=== PATIENT | male | born 1945 | race Hispanic/Latino ===

== ENCOUNTER 2018-11-04 13:28 | Emergency (ER) | payer OTHER ==
[~2018-11-04] VITALS: Ht 162.6 cm; Wt 67.1 kg
--- OUTSIDE RECORDS SUMMARY | 2018-11-04 13:31 | XMS REPORT ---
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 Allergies, Adverse Reactions, Alerts Allergy Name Allergy Type Status Severity Reaction(s) Onset Date Inactive Date Treating Clinician Comments diphenhydramine DA Active SV 2018-10-01 00:00:00 diphenhydramine DA Active SV 2017-10-11 00:00:00 Medications This patient has no known medications.
[2018-11-04] MEDS ORDERED: SODIUM CHLORIDE 0.9% 1000ML 1,000 ML IV STA (13:39)
[2018-11-04] MEDS ORDERED: MORPHINE SULFATE 2 MG/ML SYR IV STA (13:39)
[2018-11-04] MEDS ORDERED: ONDANSETRON HCL INJ 2 MG/ML VIAL IV ONE (13:45)
[2018-11-04] MEDS ORDERED: MORPHINE SULFATE INJ 4 MG/ML INJ IV ONE (13:45)
[2018-11-04] MEDS ORDERED: DIATRIZOATE MEGL/DIATRIZOA SOD 30 ML BTL PO ONE (13:46)
[2018-11-04] MEDS ORDERED: PANTOPRAZOLE 40 MG 10ML VIAL IV ONE (14:30)
[2018-11-04 15:16] LABS: BASOPHILS % 0.4 % (0.0-1.0); EOSINOPHILS # (AUTO) 0.3 (0.0-0.4); EOSINOPHILS % 4.5 % (0.0-6.0); HEMATOCRIT 46.4 % (38.2-49.6); HEMOGLOBIN 15.8 g/dL (14.0-18.0); LYMPHOCYTES # (AUTO) 2.1 (1.0-3.2); LYMPHOCYTES % 29.9 % (18.0-39.1); MEAN CORPUSCULAR HEMOGLOBIN 33.4 pg (28-32); MEAN CORPUSCULAR HGB CONC 34.1 g/dL (31-35); MEAN CORPUSCULAR VOLUME 98.1 fL (81-99); MONOCYTES # (AUTO) 0.9 (0.2-0.8); MONOCYTES % 12.6 % (4.4-11.3); NEUTROPHILS # (AUTO) 3.7 (2.1-6.9); NEUTROPHILS % 52.2 % (38.7-80.0); PLATELET COUNT 158 x10e3/uL (140-360); RED BLOOD COUNT 4.73 x10e6/uL (4.3-5.7); RED CELL DISTRIBUTION WIDTH 13.6 % (11.7-14.4)
[2018-11-04 15:21] LABS: BILIRUBIN,URINE NEGATIVE (NEGATIVE); CLARITY,URINE CLEAR (CLEAR); COLOR,URINE YELLOW (YELLOW); KETONES,URINE TRACE (NEGATIVE); LEUKOCYTE ESTERASE ,URINE NEGATIVE (NEGATIVE); NITRITE,URINE NEGATIVE (NEGATIVE); PROTEIN,URINE DIPSTICK NEGATIVE (NEGATIVE); URINE UROBILINOGEN 0.2 mg/dL (0.2 - 1)
[2018-11-04 15:22] LABS: INR 1.02; PROTHROMBIN TIME 14.3 seconds (11.9-14.5)
[2018-11-04 15:23] LABS: PARTIAL THROMBOPLASTIN TIME 29.2 seconds (23.8-35.5)
[2018-11-04 15:29] LABS: ALBUMIN/GLOBULIN RATIO 0.9 (0.8-2.0); ANION GAP 13.9 mmol/L (8-16); CALCIUM 9.2 mg/dL (8.4-10.2); CREATININE, SERUM 1.21 mg/dL (0.72-1.25); POTASSIUM 3.9 mmol/L (3.5-5.1)
[2018-11-04 15:31] LABS: BACTERIA,URINE MODERATE /HPF; MUCUS,URINE MODERATE (RARE)
[2018-11-04 15:35] LABS: CREATINE KINASE MB 0.4 ng/mL (0-5.0)
[2018-11-04] MEDS ORDERED: LIDOCAINE VISC 2% SOLN 15 ML UDC PO ONE (15:45)
[2018-11-04] MEDS ORDERED: MAGNESIUM/ALUMINUM/SIMETHICONE 30 ML UDC PO ONE (15:45)
[2018-11-04] MEDS ORDERED: BELLADONNA ALK/PHENOBARBITAL 5 ML UDC PO SCH ×2 (16:00→21:00)
--- NOTE | 2018-11-04 16:04 | Diagnostic Imaging Report ---
EXAMINATION: CHEST SINGLE (PORTABLE) INDICATION: Nausea, vomiting, abdominal pain. COMPARISON: None FINDINGS: TUBES and LINES: None. LUNGS: Moderate lung volumes. Patchy opacities are present at the right lung base. There are is biapical pleural-parenchymal opacity with bronchial wall thickening and bronchiectasis in the upper lobes. There is a focal somewhat nodular opacity projecting over the right upper lung. PLEURA: No pleural effusion or pneumothorax. HEART AND MEDIASTINUM: The cardiomediastinal silhouette is unremarkable. BONES AND SOFT TISSUES: No acute osseous lesion. Soft tissues are unremarkable. UPPER ABDOMEN: No free air under the diaphragm. Surgical clips project over the upper abdomen. IMPRESSION: Focal opacity in the right upper lung could represent consolidation from pneumonia or pulmonary nodule. Follow-up chest radiograph in 6-[address] weeks or a chest CT is suggested. Patchy opacities at the right lung base, which could reflect atelectasis or pneumonia in the appropriate clinical context. Upper lobe biapical pleural parenchymal opacity with bronchial wall thickening and bronchiectasis, likely representing sequela of prior granulomatous disease. Signed by: Dr. Hero Cramer MD on 11/04/2018 4:01 PM
[2018-11-04] MEDS ORDERED: SODIUM CHLORIDE 0.9% 50ML 50 ML ONE (17:04)
[2018-11-04] MEDS ORDERED: IOPAMIDOL 370 MG/ML 200 ML INFUS..BTL INJ ONE (17:05)
--- NOTE | 2018-11-04 17:23 | Diagnostic Imaging Report ---
EXAMINATION: CT of the abdomen and pelvis with contrast. TECHNIQUE: Spiral CT images of the abdomen and pelvis were performed from the lung bases to the lesser trochanters after the intravenous administration of 100 cc of Isovue 370 and the oral administration of water. Coronal and sagittal reformatted images were obtained. COMPARISON: None. CLINICAL HISTORY:Vomiting, abdominal pain, epigastric, for 3 days DISCUSSION: ABDOMEN/PELVIS: LOWER THORAX:Subpleural reticulation, predominantly noted in the right middle lobe, likely reflecting mild fibrotic changes. No consolidation HEPATOBILIARY: No focal hepatic lesions. No intra or extrahepatic biliary ductal dilation. 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 PANCREAS: No focal masses or ductal dilatation. No peripancreatic inflammatory changes, fat stranding, free fluid or fluid collections. ADRENALS: No adrenal nodules. KIDNEYS/URETERS: No hydronephrosis, stones, or solid mass lesions. PELVIC ORGANS/BLADDER: Bladder and prostate are unremarkable. PERITONEUM/RETROPERITONEUM: No free air or fluid. LYMPH NODES: No intra-abdominal, retroperitoneal, pelvic or inguinal lymphadenopathy. VESSELS: The celiac trunk,superior and inferior mesenteric and bilateral renal arteries are patent The portal, superior mesenteric and splenic veins are patent. GI TRACT: Multiple metallic clips surrounding the stomach. No bowel dilation or evidence of obstruction. No wall thickening. BONES AND SOFT TISSUE: No aggressive lytic lesions. Degenerative disc changes in the lumbosacral spine. No soft tissue abnormalities. IMPRESSION: 1. No acute abdominal or pelvic abnormalities. No bowel dilation or evidence of obstruction. 2. Postoperative changes in the stomach. Status post cholecystectomy and splenectomy. Signed by: Dr. Pritesh Fox M.D. on 11/04/2018 5:19 PM
[2018-11-04 17:58] VITALS: BP 107/72
== END 2018-11-04 18:10 | disposition home or self-care (01) ==
LOC: ER 13:28
DX: R10.33 Periumbilical pain (principal); R10.13 Epigastric pain; R11.2 Nausea with vomiting, unspecified; R19.7 Diarrhea, unspecified
CPT/HCPCS: 36415; 71045; 74177; 80053; 81001; 82550; 82553; 83690; 83880; 84484; 85025; 85610; 85730; 87086; 87400; 93005; 99284; J2270; J2405; J7030; Q9967

== ENCOUNTER 2019-08-22 06:43 | Emergency (ER) | payer OTHER ==
[~2019-08-22] VITALS: Ht 162.6 cm; Wt 67.1 kg
[2019-08-22 07:39] LABS: BASOPHILS % 0.4 % (0.0-1.0); EOSINOPHILS # (AUTO) 0.5 (0.0-0.4); EOSINOPHILS % 5.2 % (0.0-6.0); HEMATOCRIT 46.9 % (38.2-49.6); HEMOGLOBIN 16.2 g/dL (14.0-18.0); LYMPHOCYTES # (AUTO) 3.1 (1.0-3.2); LYMPHOCYTES % 33.3 % (18.0-39.1); MEAN CORPUSCULAR HEMOGLOBIN 33.3 pg (28-32); MEAN CORPUSCULAR HGB CONC 34.5 g/dL (31-35); MEAN CORPUSCULAR VOLUME 96.3 fL (81-99); MONOCYTES % 10.5 % (4.4-11.3); NEUTROPHILS # (AUTO) 4.6 (2.1-6.9); NEUTROPHILS % 50.2 % (38.7-80.0); PLATELET COUNT 187 x10e3/uL (140-360); RED BLOOD COUNT 4.87 x10e6/uL (4.3-5.7); RED CELL DISTRIBUTION WIDTH 13.2 % (11.7-14.4)
[2019-08-22] MEDS ORDERED: ONDANSETRON HCL INJ 2MG/ML 2ML 2 MG/ML VIAL IV STA (07:52)
[2019-08-22] MEDS ORDERED: SODIUM CHLORIDE 0.9% 1000ML 1,000 ML IV SCH (08:00)
[2019-08-22] MEDS ORDERED: MORPHINE SULFATE INJ 4 MG/ML INJ 1ML IV PRN (08:00)
[2019-08-22 08:04] LABS: ALANINE AMINOTRANSFERASE 24 IU/L (0-55); ALBUMIN 4.4 g/dL (3.5-5.0); ALKALINE PHOSPHATASE 49 IU/L (40-150); ANION GAP 12.6 mmol/L (8-16); BLOOD UREA NITROGEN 12 mg/dL (7-26); BUN/CREATININE RATIO 11 (6-25); CARBON DIOXIDE 27 mmol/L (22-29); CHLORIDE 100 mmol/L (98-107); CREATININE, SERUM 1.12 mg/dL (0.72-1.25); EST GLOMERULAR FILTRATION RATE > 60 ML/MIN (60-); GLUCOSE 80 mg/dL (74-118); POTASSIUM 3.6 mmol/L (3.5-5.1); SODIUM 136 mmol/L (136-145)
--- NOTE | 2019-08-22 09:09 | Diagnostic Imaging Report ---
EXAM: CT Abdomen and Pelvis WITH intravenous contrast INDICATION: Abdominal pain COMPARISON: CT abdomen and pelvis 11/04/2018 TECHNIQUE: Abdomen and pelvis were scanned utilizing a multidetector helical scanner from the lung base to the pubic symphysis after administration of IV contrast. Coronal and sagittal reformations were obtained. Routine protocol was performed. Scan was performed during portal venous phase. IV CONTRAST: 100mL of Isovue 370 ORAL CONTRAST: Water RADIATION DOSE: Total DLP: 215.9 mGy*cm Dose modulation, iterative reconstruction, and/or weight based adjustment of the mA/kV was utilized to reduce the radiation dose to as low as reasonably achievable. FINDINGS: LOWER THORAX: No focal consolidation. Mild peripheral increased reticular opacities compatible with chronic lung disease. HEPATOBILIARY: Diffuse hepatic steatosis. No focal liver lesion. No biliary ductal dilation. Status post cholecystectomy. SPLEEN: Surgically absent. PANCREAS: No focal masses or ductal dilatation. ADRENALS: No adrenal nodules. KIDNEYS/URETERS: No hydronephrosis or renal calculi. Bilateral extrarenal pelvises. PELVIC ORGANS/BLADDER: Unremarkable. PERITONEUM / RETROPERITONEUM: No free air or fluid. LYMPH NODES: No lymphadenopathy. VESSELS: Minimal scattered atherosclerotic calcifications of the nonaneurysmal abdominal aorta. GI TRACT: No abnormal bowel wall thickening. No bowel obstruction. Postoperative changes of the stomach. BONES AND SOFT TISSUES: No acute osseous injury. No suspicious lytic or blastic lesions. Grade 1 anterolisthesis at L4-5. IMPRESSION: No acute findings in the abdomen or pelvis. Diffuse hepatic steatosis. Postoperative findings including of the stomach, splenectomy, and cholecystectomy. Signed by: Nicole Gonzalez MD on 08/22/2019 9:05 AM
[2019-08-22 09:11] LABS: BILIRUBIN,URINE NEGATIVE (NEGATIVE); CLARITY,URINE CLEAR (CLEAR); COLOR,URINE YELLOW (YELLOW); KETONES,URINE TRACE (NEGATIVE); LEUKOCYTE ESTERASE ,URINE NEGATIVE (NEGATIVE); NITRITE,URINE NEGATIVE (NEGATIVE); PROTEIN,URINE DIPSTICK NEGATIVE (NEGATIVE); URINE UROBILINOGEN 0.2 mg/dL (0.2 - 1)
[2019-08-22 09:27] VITALS: BP 121/77
[2019-08-22] MEDS ORDERED: ZOFRAN4 MG SL (09:29)
[2019-08-22 09:37] LABS: RBC,URINE 0-5 /HPF (0-5)
[2019-08-22 09:38] LABS: HYALINE CASTS 0-1 (0-1); MUCUS,URINE MANY (RARE)
[2019-08-22 09:39] LABS: BACTERIA,URINE MODERATE /HPF; EPITHELIAL CELLS,URINE MODERATE /LPF
[2019-08-22] MEDS ORDERED: SODIUM CHLORIDE 0.9% 50ML 50 ML ONE (13:59)
[2019-08-22] MEDS ORDERED: IOPAMIDOL 370 MG/ML 200 ML INFUS..BTL INJ ONE (13:59)
== END 2019-08-22 09:46 | disposition home or self-care (01) ==
LOC: ER 06:43
DX: R10.84 Generalized abdominal pain (principal); R11.2 Nausea with vomiting, unspecified; K21.0 Gastro-esophageal reflux disease with esophagitis
CPT/HCPCS: 36415; 74177; 80053; 81001; 85025; 93005; 99284; J2270; J2405; J7030; Q9967

== ENCOUNTER 2019-09-11 08:59 | Emergency (ER) | payer OTHER ==
[~2019-09-11] VITALS: Ht 162.6 cm; Wt 67.1 kg
[~2019-09-11 08:59] MED LIST: ZOFRAN4 MG SL
[2019-09-11] MEDS ORDERED: SODIUM CHLORIDE 0.9% 1000ML 1,000 ML IV STA (09:36)
[2019-09-11] MEDS ORDERED: DICYCLOMINE HCL 20 MG/2 ML VIAL IM ONE (09:45)
[2019-09-11 10:00] LABS: BASOPHILS # (AUTO) 0.1 (0.0-0.1); BASOPHILS % 0.7 % (0.0-1.0); EOSINOPHILS # (AUTO) 0.4 (0.0-0.4); EOSINOPHILS % 5.3 % (0.0-6.0); HEMATOCRIT 44.8 % (38.2-49.6); HEMOGLOBIN 15.4 g/dL (14.0-18.0); LYMPHOCYTES # (AUTO) 2.9 (1.0-3.2); LYMPHOCYTES % 37.5 % (18.0-39.1); MEAN CORPUSCULAR HEMOGLOBIN 33.7 pg (28-32); MEAN CORPUSCULAR HGB CONC 34.4 g/dL (31-35); MONOCYTES % 12.6 % (4.4-11.3); NEUTROPHILS # (AUTO) 3.3 (2.1-6.9); NEUTROPHILS % 43.5 % (38.7-80.0); PLATELET COUNT 177 x10e3/uL (140-360); RED BLOOD COUNT 4.57 x10e6/uL (4.3-5.7); RED CELL DISTRIBUTION WIDTH 13.5 % (11.7-14.4)
[2019-09-11] MEDS ORDERED: ONDANSETRON HCL INJ 2MG/ML 2ML 2 MG/ML VIAL IV ONE (10:00)
[2019-09-11 10:02] LABS: BILIRUBIN,URINE NEGATIVE (NEGATIVE); CLARITY,URINE CLEAR (CLEAR); COLOR,URINE YELLOW (YELLOW); KETONES,URINE NEGATIVE (NEGATIVE); LEUKOCYTE ESTERASE ,URINE NEGATIVE (NEGATIVE); NITRITE,URINE NEGATIVE (NEGATIVE); PROTEIN,URINE DIPSTICK NEGATIVE (NEGATIVE); URINE UROBILINOGEN 0.2 mg/dL (0.2 - 1)
[2019-09-11 10:41] LABS: ALBUMIN 4.3 g/dL (3.5-5.0); ANION GAP 13.2 mmol/L (8-16); CALCIUM 9.8 mg/dL (8.4-10.2); CREATININE, SERUM 1.28 mg/dL (0.72-1.25); POTASSIUM 4.2 mmol/L (3.5-5.1)
[2019-09-11 10:48] LABS: CREATINE KINASE MB 1.6 ng/mL (0-5.0)
[2019-09-11 10:49] LABS: BACTERIA,URINE FEW /HPF; EPITHELIAL CELLS,URINE FEW /LPF; RBC,URINE 0-5 /HPF (0-5); WBC,URINE (MAN) 0-5 /HPF (0-5)
--- NOTE | 2019-09-11 12:08 | Diagnostic Imaging Report ---
EXAM: CT Abdomen and Pelvis WITH intravenous contrast INDICATION: Abdominal pain COMPARISON: CT abdomen and pelvis 08/22/2019. TECHNIQUE: Abdomen and pelvis were scanned utilizing a multidetector helical scanner from the lung base to the pubic symphysis after administration of IV contrast. Coronal and sagittal reformations were obtained. Routine protocol was performed. Scan was performed during portal venous phase. IV CONTRAST: 100mL of Isovue 370 ORAL CONTRAST: Water RADIATION DOSE: Total DLP: 228.2 mGy*cm Dose modulation, iterative reconstruction, and/or weight based adjustment of the mA/kV was utilized to reduce the radiation dose to as low as reasonably achievable. FINDINGS: LOWER THORAX: Mild reticular opacities at the lung bases, suggestive of early fibrosis. HEPATOBILIARY: Diffuse hepatic steatosis. No focal liver lesion. No biliary ductal dilation. Status post cholecystectomy. SPLEEN: Status post splenectomy. PANCREAS: No focal masses or ductal dilatation. ADRENALS: No adrenal nodules. KIDNEYS/URETERS: No hydronephrosis or renal calculi. Bilateral extrarenal pelvises. PELVIC ORGANS/BLADDER: Unremarkable. PERITONEUM / RETROPERITONEUM: No free air or fluid. LYMPH NODES: No lymphadenopathy. VESSELS: Minimal scattered atherosclerotic calcifications of the nonaneurysmal abdominal aorta. GI TRACT: No abnormal bowel wall thickening. No bowel obstruction. Postoperative changes of the stomach. BONES AND SOFT TISSUES: No acute osseous injury. No suspicious lytic or blastic lesions. Grade 1 anterolisthesis at L4-5. IMPRESSION: No acute findings in the abdomen or pelvis, unchanged from CT on 08/22/2019. Diffuse hepatic steatosis. Postoperative findings of the stomach, splenectomy, and cholecystectomy. Signed by: Dr. Hero Cramer MD on 09/11/2019 12:05 PM
[2019-09-11 12:13] VITALS: BP 114/71
[2019-09-11] MEDS ORDERED: IOPAMIDOL 370 MG/ML 200 ML INFUS..BTL INJ ONE (22:06)
[2019-09-11] MEDS ORDERED: SODIUM CHLORIDE 0.9% 50ML 50 ML ONE (22:06)
== END 2019-09-11 13:22 | disposition home or self-care (01) ==
LOC: ER 08:59
DX: R11.0 Nausea (principal); K21.0 Gastro-esophageal reflux disease with esophagitis; E03.9 Hypothyroidism, unspecified
CPT/HCPCS: 36415; 74177; 80053; 81001; 82550; 82553; 83690; 84484; 85025; 93005; 99284; J0500; J2405; J7030; Q9967

== ENCOUNTER 2019-09-14 19:31 | Emergency (ER) | payer OTHER ==
[~2019-09-14] VITALS: Ht 162.6 cm; Wt 67.1 kg
[2019-09-14] MEDS ORDERED: ONDANSETRON HCL 4 MG ORAL DISINTEGRATING TAB PO ONE (20:00)
--- NOTE | 2019-09-14 21:02 | Diagnostic Imaging Report ---
EXAMINATION: CHEST 2 VIEWS INDICATION: ^cough ^[id number] ^2007 ^Y COMPARISON: Chest radiograph 11/04/[address] abdomen and pelvis 09/11/2019 FINDINGS: PA and lateral views TUBES and LINES: None. LUNGS: Lungs are well inflated. Diffuse bilateral reticulonodular opacities, worse in the right apex and right lower lobe remain unchanged. Diffuse bilateral emphysema and bronchiectasis, stable. No new consolidations or pulmonary. PLEURA: No pleural effusion or pneumothorax. HEART AND MEDIASTINUM: The cardiomediastinal silhouette is unremarkable. BONES AND SOFT TISSUES: No acute osseous lesion. Soft tissues are unremarkable. UPPER ABDOMEN: No free air under the diaphragm. Multiple surgical clips overlying the upper abdomen. IMPRESSION: Diffuse bilateral emphysema with associated chronic interstitial lung changes, stable since prior exam. If findings persist, consider CT chest without contrast for further evaluation. Signed by: Dr. Christina Madrid M.D. on 09/14/2019 8:58 PM
[2019-09-14 21:16] VITALS: BP 162/87
--- NOTE | 2019-09-14 21:36 | NUR ---
SEE PAPER CHARTING FOR ASSESSMENT AND V/S.
== END 2019-09-14 21:31 | disposition home or self-care (01) ==
LOC: ER 19:31
DX: J20.9 Acute bronchitis, unspecified (principal); E03.9 Hypothyroidism, unspecified; K21.9 Gastro-esophageal reflux disease without esophagitis
CPT/HCPCS: 71046; 83518; 87070; 87400; 99283; Q0162

== ENCOUNTER 2020-05-22 11:28 | Emergency (ER) | payer OTHER ==
[~2020-05-22] VITALS: Ht 162.6 cm; Wt 67.1 kg
--- OUTSIDE RECORDS SUMMARY | 2020-05-22 12:03 | XMS REPORT | Continuity of Care Document ---
Author Author [facility] Organization [facility] Address [address] [place] [address] Phone Unavailable Care Team Providers Care Test Kitchen Home Economist Name Role Phone CATY MARTINEZ MD PCP Saida MEDINA Attphys Unavailable ARABELLA, Sharath GLEASON Attphys Unavailable EVARISTO, Ad JOHNSON Attphys Unavailable Payers Payer Name Policy Type Policy Number Effective Date Expiration Date Ad Gannon [id number] 2012 00:00:00 [facility] Problems This patient has no known problems. Allergies, Adverse Reactions, Alerts Allergy Name Allergy Type Status Severity Reaction(s) Onset Date Inacti ve Date Treating Clinician Comments Source diphenhydramine DA Active SV 2018-10-01 00:00:00 [facility] diphenhydramine DA Active SV 2017-10-11 00:00:00 [facility] Medications Ordered Medication Name Filled Medication Name Start Date Stop Da te Current Medication? Ordering Clinician Indication Dosage Frequency Signature (SIG) Comments Components Source Ondansetron Hcl (Zofran*) 4 Mg Tablet Ondansetron Hcl (Zofra n*) 4 Mg Tablet 2019-08-22 00:00:00 Yes Elizabeth Simon Do 4 Every 6 Hours as needed for Nausea [facility] Procedures Procedure Date / Time Performed Performing Clinician Sour e X-ray of chest, two views 2019-09-14 00:00:00 VENUS MEDINA [facility] Computed tomography of abdomen and pelvis with contrast 2018 00:00:00 ROSIBEL BELL [facility] Computed tomography of abdomen and pelvis with contrast 2018 00:00:00 ELIZABETH SIMON [facility] Encounters Start Date/Time End Date/Time Encounter Type Admission Type [facility] Care Department Encounter ID Source 2019-09-14 19:31:00 2019-09-14 21:31:00 Departed Emergency Room 1 VICTORIANO MEDINA [facility] [id number] [facility] 2019-09-11 08:59:00 2019-09-11 13:22:00 Departed Emergency Room 1 ROSIBEL BELL [facility] [id number] [facility] 2019-08-22 06:43:00 2019-08-22 09:46:00 Departed Emergency Room 1 VICTORIANO MEDINA [facility] [id number] [facility] 2018-11-04 13:28:00 2018-11-04 18:10:00 Departed Emergency Room 1 ELIZABETH LOERA [facility] [id number] [facility] Results Test Description Test Time Test Comments Results Result Comments Source Urease Helicobacter pylori 2019-11-16 16:18:39 Test Item H. pylori (1 Hour) (test code = H. pylori (1 Hour)) Negative Urease Helicobacter zeuuqg8015-50-31 16:18:39* Test Item Value Reference Range Interpretation Comments H. pylori (1 Hour) (test code = H. pylori (1 Hour)) Negative H. pylori (4 Hours) (test code = H. pylori (4 Hours)) Negative Vial Lot # (test code = Vial Lot #) [id number] Vial Exp. Date (test code = Vial Exp. Date) 08/02/2020 N CHEST 2 [id number] 20:43:00 [place] [address] Patient Name: QUETA CORONADO MR #: [id number] : 1945 Age/Sex: 74/M Req #: [id number] Adm Physician: Ordered by: VICTORIANO MEDINA MD Report #: [id number] Location: ER Room/Bed: Procedu re: [id number] DX/CHEST 2 VIEWS Exam Date: 09/14/19 xam Time: 2009 REPORT STATUS: Gifty d EXAMINATION: CHEST 2 VIEWS INDICATION: cough [id number] COMPARISON: Chest radiograph 11/04/[address] abdomen and pelvis 09/11/2019 FINDINGS: PA and lateral views TUBES and OXANA ES: None. LUNGS: Lungs are well inflated. Diffuse bilateral reticulonodu lar opacities, worse in the right apex and right lower lobe remain unchanged. Diffuse bilateral emphysema and bronchiectasis, stable. No new consolidation s or pulmonary. PLEURA: No pleural effusion or pneumothorax. HEART AND MEDIASTINUM: The cardiomediastinal silhouette is unremarkable. BONES A ND SOFT TISSUES: No acute osseous lesion. Soft tissues are unremarkable. UPPER ABDOMEN: No free air under the diaphragm. Multiple surgical clips over lying the upper abdomen. IMPRESSION: Diffuse bilateral emphysema with as sociated chronic interstitial lung changes, stable since prior exam. If findin gs persist, consider CT chest without contrast for further evaluation. Signed by: Dr. Christina Madrid M.D. on 09/14/2019 8:58 PM Dicta reza By: CHRISTINA MADRID MD 57 Transcribed By: DEANN on 09/14/192057 COPY T O: VICTORIANO MEDINA MD Influenza Virus Types A,B Dynqnca5442-43-13 20:41:00* Test Item Value Reference Range Interpretation Comments Influenza Virus Types A,B Antigen (test code = 23784-7) NEGATIVE [facility]GATIVE [facility] Streptococcus Ledpnm9612-61-55 20:31:00* Test Item Value Reference Range Interpretation Comments Group A Streptococcus Screen (test code = 88083-6) NEGATIVE NEG ATIVE [facility]PELVIS [id number] 11:59:00 [facility] [address] [address] Patient Name: QUETA CORONADO MR #: [id number] : 1945 Age/Sex: 74/M Req #: [id number] Adm Physician: Ordered by: ROSIBEL BELL MD Report #: [id number] Location: ER Room/Bed: Procedure: [id number] CT/CT ABDOMEN/PELVIS W Exam Date: 09/11/19 Ex am Time: 1100 REPORT STATUS: Signed EXAM: CT Abdomen and Pelvis WITH intravenous contrast INDICATION: Abd ominal pain COMPARISON: CT abdomen and pelvis 08/22/2019. TECHNIQUE: A bdomen and pelvis were scanned utilizing a multidetector helical scanner from the lung base to the pubic symphysis after administration of IV contrast. Bud nal and sagittal reformations were obtained. Routine protocol was performed. S can was performed during portal venous phase. IV CONTRAST: 100mL of Is ovue 370 ORAL CONTRAST: Water RADIATION DOSE: Total DLP: 228.2 mGy*cm Dose modulation, iterative reconstruction, and/or weight based adjustment of the mA/kV was utilized to reduce the radiation dose to as low as reasonably achievable. FINDINGS: LOWER THORAX: Mild reticular opacities at the lung bases, suggestive of early fibrosis. HEPATOBILIARY: Diffuse hepatic st eatosis. No focal liver lesion. No biliary ductal dilation. Status post cholec ystectomy. SPLEEN: Status post splenectomy. PANCREAS: No focal masses or ductal dilatation. ADRENALS: No adrenal nodules. KIDNEYS/URETERS: No h ydronephrosis or renal calculi. Bilateral extrarenal pelvises. PELVIC ORGANS /BLADDER: Unremarkable. PERITONEUM / RETROPERITONEUM: No free air or fluid. LYMPH NODES: No lymphadenopathy. VESSELS: Minimal scattered atherosclerotic calcifications of the nonaneurysmal abdominal aorta. GI TRACT: No abnorm al bowel wall thickening. No bowel obstruction. Postoperative changes of the s tomach. BONES AND SOFT TISSUES: No acute osseous injury. No suspicious lyti c or blastic lesions. Grade 1 anterolisthesis at L4-5. IMPRESSION: No acute findings in the abdomen or pelvis, unchanged from CT on 08/22/2019. Di ffuse hepatic steatosis. Postoperative findings of the stomach, splenectomy , and cholecystectomy. Signed by: Dr. Andrea Chandra MD on 09/11/2019 12:05 PM Dictated By: ANDREA CHANDRA MD 120 Transcribed By: DEANN on 09/11/19 1205 COPY TO: DORIE BELL MD Urine [id number] 10:49:00* Test Item Value Reference Range Interpretation Comments Urine WBC (test code = 5821-4) 0-5 0-5 [facility] RSE9423-88-34 10:49:00* Test Item Value Reference Range Interpretation Comments Urine RBC (test code = 23258-4) 0-5 0-5 [facility] Yvjgffqc0188-56-87 10:49:00* Test Item Value Reference Range Interpretation Comments Urine Bacteria (test code = 87648-7) FEW NONE [facility] Epithelial Hosry3456-74-83 10:49:00 * Test Item Value Reference Range Interpretation Comments Urine Epithelial Cells (test code = 68635-1) FEW NONE [facility] [id number] 10:49:00* Test Item Value Reference Range Interpretation Comments Urine WBC (test code = 5821-4) 0-5 0-5 [facility] DII8510-15-39 10:49:00* Test Item Value Reference Range Interpretation Comments Urine RBC (test code = 41267-2) 0-5 0-5 [facility] Htsfjbri4674-99-86 10:49:00* Test Item Value Reference Range Interpretation Comments Urine Bacteria (test code = 77737-0) FEW NONE [facility] CenterU[facility] Epithelial Irfas0797-78-14 10:49:00 * Test Item Value Reference Range Interpretation Comments Urine Epithelial Cells (test code = 20082-6) FEW NONE [facility] Ctxdr7005-14-78 10:48:00* Test Item Value Reference Range Interpretation Comments Sodium Level (test code = 2951-2) 139 136-145 [facility]Potassium Gznvq6576-34-67 10:48:00* Test Item Value Reference Range Interpretation Comments Potassium Level (test code = 2823-3) 4.2 3.5-5.1 [facility] CenterChloride Ytrop6470-64-01 10:48:00* Test Item Value Reference Range Interpretation Comments Chloride Level (test code = 2075-0) 103 98-107 [facility] CenterCarbon Dioxide Aoddj1281-30-41 10:48:00* Test Item Value Reference Range Interpretation Comments Carbon Dioxide Level (test code = 2028-9) 27 22-29 [facility] CenterAnion Cfb2365-60-01 10:48:00* Test Item Value Reference Range Interpretation Comments Anion Gap (test code = 94375-3) 13.2 8-16 [facility] CenterBlood Urea Rthswgny2295-25-23 10:48:00* Test Item Value Reference Range Interpretation Comments Blood Urea Nitrogen (test code = 3094-0) 22 7-26 [facility] CenterCreatinine2019-11-24 10:48:00* Test Item Value Reference Range Interpretation Comments Creatinine (test code = 2160-0) 1.28 0.72-1.25 H [facility] CenterBUN/Creatinine Avhkr1122-35-61 10:48:00* Test Item Value Reference Range Interpretation Comments BUN/Creatinine Ratio (test code = 3097-3) 17 6-25 [facility] CenterEstimat Glomerular Filtration Rate 2019-09-11 10:48:00* Test Item Value Reference Range Interpretation Comments Estimat Glomerular Filtration Rate (test code = 674151386) 55 >60 L Ranges were taken from the National Kidney Disease Education Program and the [facility] Foundation literature.Reference ranges:60 or greater: Tcuxvu81-05 ( for 3 consecutive months): Chronic kidney disease 15 or less: Kidney failureScenic Mountain Medical CenterGlucose Banlc8422-30-12 10:48:00* Test Item Value Reference Range Interpretation Comments Glucose Level (test code = IAJ2502) 94 74-118 [facility] CenterCalcium Ginmy5488-01-00 10:48:00* Test Item Value Reference Range Interpretation Comments Calcium Level (test code = 15265-5) 9.8 8.4-10.2 [facility] CenterTotal Oqtgkcbir9709-51-93 10:48:00* Test Item Value Reference Range Interpretation Comments Total Bilirubin (test code = 1975-2) 0.7 0.2-1.2 [facility] CenterAspartate Amino Transf (AST/SGOT) 2019-09-11 10:48:00* Test Item Value Reference Range Interpretation Comments Aspartate Amino Transf (AST/SGOT) (test code = Aspartate Amino Transf (AST/SGOT)) 21 5-34 [facility] CenterAlanine Aminotransferase (ALT/SGPT) 2019-09-11 10:48:00* Test Item Value Reference Range Interpretation Comments Alanine Aminotransferase (ALT/SGPT) (test code = 1742-6) 21 0-55 [facility] CenterTotal Ruwvcnf1287-08-17 10:48:00* Test Item Value Reference Range Interpretation Comments Total Protein (test code = 2885-2) 8.8 6.5-8.1 H [facility] CenterAlbumin2019-11-24 10:48:00* Test Item Value Reference Range Interpretation Comments Albumin (test code = 1751-7) 4.3 3.5-5.0 [facility] CenterGlobulin2019-11-24 10:48:00* Test Item Value Reference Range Interpretation Comments Globulin (test code = 26614-5) 4.5 2.3-3.5 H [facility] CenterAlbumin/Globulin Yueel4963-52-33 10:48:00 * Test Item Value Reference Range Interpretation Comments Albumin/Globulin Ratio (test code = 1759-0) 1.0 0.8-2.0 [facility] CenterAlkaline Soiihzlssic3120-70-82 10:48:00* Test Item Value Reference Range Interpretation Comments Alkaline Phosphatase (test code = 6768-6) 51 40-150 [facility] CenterCreatine Ujcxgk6508-87-82 10:48:00* Test Item Value Reference Range Interpretation Comments Creatine Kinase (test code = 2157-6) 99 30-200 [facility] CenterCreatine Kinase WA2445-53-18 10:48:00* Test Item Value Reference Range Interpretation Comments Creatine Kinase MB (test code = 83470-6) 1.60 0-5.0 [facility] CenterTroponin Q7203-61-86 10:48:00* Test Item Value Reference Range Interpretation Comments Troponin I (test code = AJL4068) 0.094 0-0.300 [facility] CenterLipase2019-11-24 10:48:00* Test Item Value Reference Range Interpretation Comments Lipase (test code = 3040-3) 27 8-78 [facility] Centerodium Lsosr8806-61-93 10:48:00* Test Item Value Reference Range Interpretation Comments Sodium Level (test code = 2951-2) 139 136-145 [facility] CenterPotassium Clzlt4003-23-52 10:48:00* Test Item Value Reference Range Interpretation Comments Potassium Level (test code = 2823-3) 4.2 3.5-5.1 [facility] CenterChloride Ilauw5521-15-76 10:48:00* Test Item Value Reference Range Interpretation Comments Chloride Level (test code = 2075-0) 103 98-107 [facility] CenterCarbon Dioxide Efvay1966-05-47 10:48:00* Test Item Value Reference Range Interpretation Comments Carbon Dioxide Level (test code = 2028-9) 27 22-29 [facility] CenterAnion Aid6851-47-59 10:48:00* Test Item Value Reference Range Interpretation Comments Anion Gap (test code = 19285-9) 13.2 8-16 [facility] CenterBlood Urea Jpzplijx1734-93-88 10:48:00* Test Item Value Reference Range Interpretation Comments Blood Urea Nitrogen (test code = 3094-0) 22 7-26 [facility] CenterCreatinine2019-11-24 10:48:00* Test Item Value Reference Range Interpretation Comments Creatinine (test code = 2160-0) 1.28 0.72-1.25 H [facility] CenterBUN/Creatinine Csvbu0749-94-55 10:48:00* Test Item Value Reference Range Interpretation Comments BUN/Creatinine Ratio (test code = 3097-3) 17 6- [facility] CenterEstimat Glomerular Filtration Rate 2019-09-11 10:48:00* Test Item Value Reference Range Interpretation Comments Estimat Glomerular Filtration Rate (test code = 099472641) 55 >60 L Ranges were taken from the National Kidney Disease Education Program and the [facility] Kid[facility] Foundation literature.Reference ranges:60 or greater: Arupqm96-72 ( for 3 consecutive months): Chronic kidney disease 15 or less: Kidney failureScenic Mountain Medical CenterGlucose Botwz8743-75-69 10:48:00* Test Item Value Reference Range Interpretation Comments Glucose Level (test code = SRO7786) 94 74-118 [facility] CenterCalcium Vxcra3789-28-04 10:48:00* Test Item Value Reference Range Interpretation Comments Calcium Level (test code = 62310-8) 9.8 8.4-10.2 [facility] CenterTotal Yavyexbzg9832-93-18 10:48:00* Test Item Value Reference Range Interpretation Comments Total Bilirubin (test code = 1975-2) 0.7 0.2-1.2 [facility] CenterAspartate Amino Transf (AST/SGOT) 2019-09-11 10:48:00* Test Item Value Reference Range Interpretation Comments Aspartate Amino Transf (AST/SGOT) (test code = Aspartate Amino Transf (AST/SGOT)) 21 5-34 [facility] CenterAlanine Aminotransferase (ALT/SGPT) 2019-09-11 10:48:00* Test Item Value Reference Range Interpretation Comments Alanine Aminotransferase (ALT/SGPT) (test code = 1742-6) 21 0-55 [facility] CenterTotal Wlfjjhb6065-44-56 10:48:00* Test Item Value Reference Range Interpretation Comments Total Protein (test code = 2885-2) 8.8 6.5-8.1 H [facility] CenterAlbumin2019-11-24 10:48:00* Test Item Value Reference Range Interpretation Comments Albumin (test code = 1751-7) 4.3 3.5-5.0 [facility] CenterGlobulin2019-11-24 10:48:00* Test Item Value Reference Range Interpretation Comments Globulin (test code = 33818-3) 4.5 2.3-3.5 H [facility] CenterAlbumin/Globulin Yqszr4771-62-45 10:48:00 * Test Item Value Reference Range Interpretation Comments Albumin/Globulin Ratio (test code = 1759-0) 1.0 0.8-2.0 [facility] CenterAlkaline Zaavblsdvzl1838-62-30 10:48:00* Test Item Value Reference Range Interpretation Comments Alkaline Phosphatase (test code = 6768-6) 51 40-150 [facility] CenterCreatine Yxhybu3995-16-85 10:48:00* Test Item Value Reference Range Interpretation Comments Creatine Kinase (test code = 2157-6) 99 30-200 [facility] CenterCreatine Kinase EL4786-79-32 10:48:00* Test Item Value Reference Range Interpretation Comments Creatine Kinase MB (test code = 68030-8) 1.60 0-5.0 [facility] CenterTroponin A6285-80-33 10:48:00* Test Item Value Reference Range Interpretation Comments Troponin I (test code = DOC6775) 0.094 0-0.300 [facility] CenterLipase2019-11-24 10:48:00* Test Item Value Reference Range Interpretation Comments Lipase (test code = 3040-3) 27 8-78 [facility] CenterUrine Qmsye0427-76-35 10:47:00* Test Item Value Reference Range Interpretation Comments Urine Color (test code = 5778-6) YELLOW YELLOW [facility] CenterUrine Vdnhxqn0684-62-33 10:47:00* Test Item Value Reference Range Interpretation Comments Urine Clarity (test code = 61626-4) CLEAR CLEAR [facility] Specific Llylysk6506-55-68 10:47:00 * Test Item Value Reference Range Interpretation Comments Urine Specific Pine (test code = 5811-5) 1.015 1.010-1.02 5 [facility] CenterUrine xF8929-29-16 10:47:00* Test Item Value Reference Range Interpretation Comments Urine pH (test code = 59071-8) 6 5-7 [facility] Leukocyte Bhgziqaq6440-95-37 10:47:00* Test Item Value Reference Range Interpretation Comments Urine Leukocyte Esterase (test code = 90564-6) NEGATIVE NEGATIV E [facility] Rspoxxo0535-00-82 10:47:00* Test Item Value Reference Range Interpretation Comments Urine Nitrite (test code = 69414-6) NEGATIVE NEGATIVE [facility] Prcfwie5806-95-48 10:47:00* Test Item Value Reference Range Interpretation Comments Urine Protein (test code = 58200-4) NEGATIVE NEGATIVE [facility] Glucose (UA)2019-09-11 10:47:00* Test Item Value Reference Range Interpretation Comments Urine Glucose (UA) (test code = 01960-0) NEGATIVE NEGATIVE [facility] Oaxlhpn8998-92-44 10:47:00* Test Item Value Reference Range Interpretation Comments Urine Ketones (test code = 04848-1) NEGATIVE NEGATIVE [facility] Ysrlzlrvmgaa0517-80-29 10:47:00* Test Item Value Reference Range Interpretation Comments Urine Urobilinogen (test code = 64109-2) 0.2 0.2-1 [facility] Asocjbqgs3676-64-50 10:47:00* Test Item Value Reference Range Interpretation Comments Urine Bilirubin (test code = 1977-8) NEGATIVE NEGATIVE [facility] CenterU[facility] Oogyd1047-97-49 10:47:00* Test Item Value Reference Range Interpretation Comments Urine Blood (test code = 61370-4) NEGATIVE NEGATIVE [facility] CenterU[facility] Gyfeh2346-53-97 10:47:00* Test Item Value Reference Range Interpretation Comments Urine Color (test code = 5778-6) YELLOW YELLOW [facility] CenterUrine Orpmgyk7179-12-15 10:47:00* Test Item Value Reference Range Interpretation Comments Urine Clarity (test code = 07668-5) CLEAR CLEAR [facility] CenterU[facility] Specific Qumbodw4008-35-36 10:47:00 * Test Item Value Reference Range Interpretation Comments Urine Specific Pine (test code = 5811-5) 1.015 1.010-1.02 5 [facility] CenterU[facility] zU9791-71-30 10:47:00* Test Item Value Reference Range Interpretation Comments Urine pH (test code = 46941-6) 6 5-7 [facility] Center[facility] Leukocyte Rbfliytl3646-67-15 10:47:00* Test Item Value Reference Range Interpretation Comments Urine Leukocyte Esterase (test code = 47300-7) NEGATIVE NEGATIV E [facility] CenterUrine Ebzlmvc2314-02-50 10:47:00* Test Item Value Reference Range Interpretation Comments Urine Nitrite (test code = 14183-5) NEGATIVE NEGATIVE [facility] CenterU[facility] Zpndtru6195-30-67 10:47:00* Test Item Value Reference Range Interpretation Comments Urine Protein (test code = 58935-7) NEGATIVE NEGATIVE [facility] CenterU[facility] Glucose (UA)2019-09-11 10:47:00* Test Item Value Reference Range Interpretation Comments Urine Glucose (UA) (test code = 97654-3) NEGATIVE NEGATIVE [facility] CenterU[facility] Yfxiwym5740-66-23 10:47:00* Test Item Value Reference Range Interpretation Comments Urine Ketones (test code = 69399-7) NEGATIVE NEGATIVE [facility] CenterU[facility] Bltdpjunnssz7527-36-51 10:47:00* Test Item Value Reference Range Interpretation Comments Urine Urobilinogen (test code = 16181-4) 0.2 0.2-1 [facility] CenterU[facility] Egghwrkob2356-10-06 10:47:00* Test Item Value Reference Range Interpretation Comments Urine Bilirubin (test code = 1977-8) NEGATIVE NEGATIVE [facility] CenterU[facility] Zzadr9477-93-04 10:47:00* Test Item Value Reference Range Interpretation Comments Urine Blood (test code = 86356-5) NEGATIVE NEGATIVE [facility] CenterWhite Blood Pepid5731-79-64 10:24:00* Test Item Value Reference Range Interpretation Comments White Blood Count (test code = 6690-2) 7.61 4.8-10.8 [facility] CenterRed Blood Fhvsx6118-81-61 10:24:00* Test Item Value Reference Range Interpretation Comments Red Blood Count (test code = 789-8) 4.57 4.3-5.7 [facility] CenterHemoglobin2019-11-24 10:24:00* Test Item Value Reference Range Interpretation Comments Hemoglobin (test code = 48992-6) 15.4 14.0-18.0 [facility] CenterHematocrit2019-11-24 10:24:00* Test Item Value Reference Range Interpretation Comments Hematocrit (test code = 4544-3) 44.8 38.2-49.6 [facility] CenterMean Corpuscular Vexqsd2455-51-38 10:24:00* Test Item Value Reference Range Interpretation Comments Mean Corpuscular Volume (test code = 787-2) 98.0 81-99 [facility] CenterMean Corpuscular Efpmtfqvsl1610-87-00 10:24:00* Test Item Value Reference Range Interpretation Comments Mean Corpuscular Hemoglobin (test code = 785-6) 33.7 28-32 [facility] Hemoglobin Concent 2019-09-11 10:24:00* Test Item Value Reference Range Interpretation Comments Mean Corpuscular Hemoglobin Concent (test code = 786-4) 34.4 31-35 [facility] CenterRed Cell Distribution Bvmtt2990-00-80 10:24:00* Test Item Value Reference Range Interpretation Comments Red Cell Distribution Width (test code = 06280-2) 13.5 11.7 -14.4 [facility] CenterPlatelet Rcmzm4710-20-37 10:24:00* Test Item Value Reference Range Interpretation Comments Platelet Count (test code = 777-3) 177 140-360 [facility] CenterNeutrophils (%) (Auto)2019-09-11 10:24:00 * Test Item Value Reference Range Interpretation Comments Neutrophils (%) (Auto) (test code = 78680-9) 43.5 38.7-80.0 [facility] CenterLymphocytes (%) (Auto)2019-09-11 10:24:00 * Test Item Value Reference Range Interpretation Comments Lymphocytes (%) (Auto) (test code = 736-9) 37.5 18.0-39.1 [facility] CenterMonocytes (%) (Auto)2019-09-11 10:24:00* Test Item Value Reference Range Interpretation Comments Monocytes (%) (Auto) (test code = 5905-5) 12.6 4.4-11.3 H [facility] CenterEosinophils (%) (Auto)2019-09-11 10:24:00 * Test Item Value Reference Range Interpretation Comments Eosinophils (%) (Auto) (test code = 713-8) 5.3 0.0-6.0 [facility] CenterBasophils (%) (Auto)2019-09-11 10:24:00* Test Item Value Reference Range Interpretation Comments Basophils (%) (Auto) (test code = 706-2) 0.7 0.0-1.0 [facility] CenterIM GRANULOCYTES %2019-09-11 10:24:00* Test Item Value Reference Range Interpretation Comments IM GRANULOCYTES % (test code = IM GRANULOCYTES %) 0.4 0.0- 1.0 [facility] CenterNeutrophils # (Auto)2019-09-11 10:24:00* Test Item Value Reference Range Interpretation Comments Neutrophils # (Auto) (test code = 751-8) 3.3 2.1-6.9 [facility] CenterLymphocytes # (Auto)2019-09-11 10:24:00* Test Item Value Reference Range Interpretation Comments Lymphocytes # (Auto) (test code = 98538-2) 2.9 1.0-3.2 [facility] CenterMonocytes # (Auto)2019-09-11 10:24:00* Test Item Value Reference Range Interpretation Comments Monocytes # (Auto) (test code = 742-7) 1.0 0.2-0.8 H [facility] CenterEosinophils # (Auto)2019-09-11 10:24:00* Test Item Value Reference Range Interpretation Comments Eosinophils # (Auto) (test code = 711-2) 0.4 0.0-0.4 [facility] CenterBasophils # (Auto)2019-09-11 10:24:00* Test Item Value Reference Range Interpretation Comments Basophils # (Auto) (test code = 704-7) 0.1 0.0-0.1 [facility] CenterAbsolute Immature Granulocyte (auto 2019-09-11 10:24:00* Test Item Value Reference Range Interpretation Comments Absolute Immature Granulocyte (auto (sha t code = Absolute Immature Granulocyte (auto) 0.03 0-0.1 [facility] CenterWhite Blood Tvndn8424-79-69 10:24:00* Test Item Value Reference Range Interpretation Comments White Blood Count (test code = 6690-2) 7.61 4.8-10.8 [facility] CenterRed Blood Iiblr9867-06-91 10:24:00* Test Item Value Reference Range Interpretation Comments Red Blood Count (test code = 789-8) 4.57 4.3-5.7 [facility] CenterHemoglobin2019-11-24 10:24:00* Test Item Value Reference Range Interpretation Comments Hemoglobin (test code = 71090-8) 15.4 14.0-18.0 [facility] CenterHematocrit2019-11-24 10:24:00* Test Item Value Reference Range Interpretation Comments Hematocrit (test code = 4544-3) 44.8 38.2-49.6 [facility] CenterMean Corpuscular Toxkyj1331-91-99 10:24:00* Test Item Value Reference Range Interpretation Comments Mean Corpuscular Volume (test code = 787-2) 98.0 81-99 [facility] CenterMean Corpuscular Clnpchhdng4304-33-88 10:24:00* Test Item Value Reference Range Interpretation Comments Mean Corpuscular Hemoglobin (test code = 785-6) 33.7 28-32 H [facility] CenterMean Corpuscular Hemoglobin Concent 2019-09-11 10:24:00* Test Item Value Reference Range Interpretation Comments Mean Corpuscular Hemoglobin Concent (test code = 786-4) 34.4 31-35 [facility] CenterRed Cell Distribution Bpiac3186-86-24 10:24:00* Test Item Value Reference Range Interpretation Comments Red Cell Distribution Width (test code = 88519-2) 13.5 11.7 -14.4 [facility] CenterPlatelet Ipues9606-83-49 10:24:00* Test Item Value Reference Range Interpretation Comments Platelet Count (test code = 777-3) 177 140-360 [facility] CenterNeutrophils (%) (Auto)2019-09-11 10:24:00 * Test Item Value Reference Range Interpretation Comments Neutrophils (%) (Auto) (test code = 93790-1) 43.5 38.7-80.0 [facility] CenterLymphocytes (%) (Auto)2019-09-11 10:24:00 * Test Item Value Reference Range Interpretation Comments Lymphocytes (%) (Auto) (test code = 736-9) 37.5 18.0-39.1 [facility] CenterMonocytes (%) (Auto)2019-09-11 10:24:00* Test Item Value Reference Range Interpretation Comments Monocytes (%) (Auto) (test code = 5905-5) 12.6 4.4-11.3 H [facility] CenterEosinophils (%) (Auto)2019-09-11 10:24:00 * Test Item Value Reference Range Interpretation Comments Eosinophils (%) (Auto) (test code = 713-8) 5.3 0.0-6.0 [facility] CenterBasophils (%) (Auto)2019-09-11 10:24:00* Test Item Value Reference Range Interpretation Comments Basophils (%) (Auto) (test code = 706-2) 0.7 0.0-1.0 [facility] CenterIM GRANULOCYTES %2019-09-11 10:24:00* Test Item Value Reference Range Interpretation Comments IM GRANULOCYTES % (test code = IM GRANULOCYTES %) 0.4 0.0- 1.0 [facility] CenterNeutrophils # (Auto)2019-09-11 10:24:00* Test Item Value Reference Range Interpretation Comments Neutrophils # (Auto) (test code = 751-8) 3.3 2.1-6.9 [facility] CenterLymphocytes # (Auto)2019-09-11 10:24:00* Test Item Value Reference Range Interpretation Comments Lymphocytes # (Auto) (test code = 15460-6) 2.9 1.0-3.2 [facility] CenterMonocytes # (Auto)2019-09-11 10:24:00* Test Item Value Reference Range Interpretation Comments Monocytes # (Auto) (test code = 742-7) 1.0 0.2-0.8 H [facility] CenterEosinophils # (Auto)2019-09-11 10:24:00* Test Item Value Reference Range Interpretation Comments Eosinophils # (Auto) (test code = 711-2) 0.4 0.0-0.4 [facility] CenterBasophils # (Auto)2019-09-11 10:24:00* Test Item Value Reference Range Interpretation Comments Basophils # (Auto) (test code = 704-7) 0.1 0.0-0.1 [facility] CenterAbsolute Immature Granulocyte (auto 2019-09-11 10:24:00* Test Item Value Reference Range Interpretation Comments Absolute Immature Granulocyte (auto (sha t code = Absolute Immature Granulocyte (auto) 0.03 0-0.1 [facility] CenterUrine EMK0326-90-96 09:39:00* Test Item Value Reference Range Interpretation Comments Urine WBC (test code = 5821-4) 6-10 0-5 H [facility] CenterUrine XDJ3888-42-80 09:39:00* Test Item Value Reference Range Interpretation Comments Urine RBC (test code = 51188-7) 0-5 0-5 [facility] CenterUrine Wkzgpeok2905-61-83 09:39:00* Test Item Value Reference Range Interpretation Comments Urine Bacteria (test code = 38229-7) MODERATE NONE H [facility] CenterUrine Epithelial Sroka1679-37-67 09:39:00 * Test Item Value Reference Range Interpretation Comments Urine Epithelial Cells (test code = 74717-1) MODERATE NONE [facility] CenterUrine Hyaline Hzaeh6455-50-70 09:39:00* Test Item Value Reference Range Interpretation Comments Urine Hyaline Casts (test code = 34774-1) 0-1 0-1 [facility] CenterUrine Coarse Granular Qvjwf2349-11-55 09:39:00* Test Item Value Reference Range Interpretation Comments Urine Coarse Granular Casts (test code = 76156-9) 1-5 >0 H [facility] CenterUrine Fmxhp7851-52-61 09:39:00* Test Item Value Reference Range Interpretation Comments Urine Mucus (test code = 8247-9) MANY RARE H [facility] CenterUrine Hyaline Tbpuo0994-09-03 09:39:00* Test Item Value Reference Range Interpretation Comments Urine Hyaline Casts (test code = 45958-1) 0-1 0-1 [facility] CenterUrine Coarse Granular Vcxpn3741-40-25 09:39:00* Test Item Value Reference Range Interpretation Comments Urine Coarse Granular Casts (test code = 24831-7) 1-5 >0 H [facility] CenterUrine Mwxcv0178-22-21 09:39:00* Test Item Value Reference Range Interpretation Comments Urine Mucus (test code = 8247-9) MANY RARE H [facility] CenterUrine Hyaline Qmslc0083-22-19 09:39:00* Test Item Value Reference Range Interpretation Comments Urine Hyaline Casts (test code = 26299-0) 0-1 0-1 [facility] CenterUrine Coarse Granular Xmjfw6960-92-74 09:39:00* Test Item Value Reference Range Interpretation Comments Urine Coarse Granular Casts (test code = 61806-2) 1-5 >0 H [facility] CenterUrine Yxenl7263-25-95 09:39:00* Test Item Value Reference Range Interpretation Comments Urine Mucus (test code = 8247-9) MANY RARE H [facility] CenterUrine Hsspf0095-62-66 09:12:00* Test Item Value Reference Range Interpretation Comments Urine Color (test code = 5778-6) YELLOW YELLOW [facility] CenterUrine Utuddjh2930-56-78 09:12:00* Test Item Value Reference Range Interpretation Comments Urine Clarity (test code = 56916-5) CLEAR CLEAR [facility] CenterUrine Specific Lmtgyky3497-33-22 09:12:00 * Test Item Value Reference Range Interpretation Comments Urine Specific Pine (test code = 5811-5) 1.020 1.010-1.02 5 [facility] CenterUrine eG8037-43-00 09:12:00* Test Item Value Reference Range Interpretation Comments Urine pH (test code = 89968-8) 6 5-7 [facility] CenterUrine Leukocyte Rntiptdb9910-09-97 09:12:00* Test Item Value Reference Range Interpretation Comments Urine Leukocyte Esterase (test code = 86089-8) NEGATIVE NEGATIV E [facility] CenterUrine Bkgbenq1715-63-21 09:12:00* Test Item Value Reference Range Interpretation Comments Urine Nitrite (test code = 18198-7) NEGATIVE NEGATIVE [facility] CenterUrine Wnljhbl0854-06-83 09:12:00* Test Item Value Reference Range Interpretation Comments Urine Protein (test code = 48979-1) NEGATIVE NEGATIVE [facility] CenterUrine Glucose (UA)2019-08-22 09:12:00* Test Item Value Reference Range Interpretation Comments Urine Glucose (UA) (test code = 55336-3) NEGATIVE NEGATIVE [facility] CenterUrine Imzkvqb3273-51-85 09:12:00* Test Item Value Reference Range Interpretation Comments Urine Ketones (test code = 02503-3) TRACE NEGATIVE H [facility] CenterUrine Ovxbldgxwqkw5903-29-41 09:12:00* Test Item Value Reference Range Interpretation Comments Urine Urobilinogen (test code = 75751-4) 0.2 0.2-1 [facility] CenterUrine Ixszgfiht5147-24-18 09:12:00* Test Item Value Reference Range Interpretation Comments Urine Bilirubin (test code = 1977-8) NEGATIVE NEGATIVE [facility] CenterUrine Lowwz9444-61-98 09:12:00* Test Item Value Reference Range Interpretation Comments Urine Blood (test code = 67889-8) NEGATIVE NEGATIVE [facility] CenterCT ABDOMEN/PELVIS L9821-64-35 08:59:00 [place] [address] Patient Name: QUETA CORONADO MR #: [id number] : 1945 Age/Sex: 74/M Req #: [id number] Adm Physician: Ordered by: ELIZABETH SIMON DO Report #: [id number] Location: ER Room/Bed: Procedure: [id number] CT/CT ABDOMEN/PELVIS W Exam Date: 08/22/19 Exam Time: 834 REPORT STATUS: Sig marquis EXAM: CT Abdomen and Pelvis WITH intravenous contrast INDICATION: Abdominal pain COMPARISON: CT abdomen and pelvis 11/04/2018 TECHNIQUE: Abdomen and pelvis were scanned utilizing a multidetector helical scanner from the lung base to the pubic symphysis after administration of IV contrast. Cor onal and sagittal reformations were obtained. Routine protocol was performed. Scan was performed during portal venous phase. IV CONTRAST: 100mL of I sovue 370 ORAL CONTRAST: Water RADIATION DOSE: Total DLP: 215.9 mGy*cm Dose modulation, iterative reconstruction, and/or weight based adjustment of the mA/kV was utilized to reduce the radiation dose to as low as reasonably achievable. FINDINGS: LOWER THORAX: No focal consolidation. Mild sascha pheral increased reticular opacities compatible with chronic lung disease. HEPATOBILIARY: Diffuse hepatic steatosis. No focal liver lesion. No biliary ductal dilation. Status post cholecystectomy. SPLEEN: Surgically absent. PANCREAS: No focal masses or ductal dilatation. ADRENALS: No adrenal nod ules. KIDNEYS/URETERS: No hydronephrosis or renal calculi. Bilateral extrarena l pelvises. PELVIC ORGANS/BLADDER: Unremarkable. PERITONEUM / RETROPERI TONEUM: No free air or fluid. LYMPH NODES: No lymphadenopathy. VESSELS: Mini mal scattered atherosclerotic calcifications of the nonaneurysmal abdominal ao rta. GI TRACT: No abnormal bowel wall thickening. No bowel obstruction. P ostoperative changes of the stomach. BONES AND SOFT TISSUES: No acute osseo us injury. No suspicious lytic or blastic lesions. Grade 1 anterolisthesis at L4-5. IMPRESSION: No acute findings in the abdomen or pelvis. Diffu se hepatic steatosis. Postoperative findings including of the stomach, sple nectomy, and cholecystectomy. Signed by: Iza Jackson MD on 08/22/2019 9:05 AM Dictated By: IZA JACKSON MD 4 Transcribed By: DEANN on 08/22/19904 COPY TO: ELIZABETH MONAHAN DO Sodium Hpbre4545-67-09 08:05:00* Test Item Value Reference Range Interpretation Comments Sodium Level (test code = 2951-2) 136 136-145 [facility] CenterPotassium Xwuzu9676-93-73 08:05:00* Test Item Value Reference Range Interpretation Comments Potassium Level (test code = 2823-3) 3.6 3.5-5.1 [facility] CenterChloride Lwhax6973-11-48 08:05:00* Test Item Value Reference Range Interpretation Comments Chloride Level (test code = 2075-0) 100 98-107 [facility] CenterCarbon Dioxide Zibzj1632-61-76 08:05:00* Test Item Value Reference Range Interpretation Comments Carbon Dioxide Level (test code = 8-9) 27 -29 [facility] CenterAnion Lex5035-87-95 08:05:00* Test Item Value Reference Range Interpretation Comments Anion Gap (test code = 28405-6) 12.6 8-16 [facility] CenterBlood Urea Jttbdcvt0519-21-49 08:05:00* Test Item Value Reference Range Interpretation Comments Blood Urea Nitrogen (test code = 3094-0) 12 7-26 [facility] CenterCreatinine2019-11-04 08:05:00* Test Item Value Reference Range Interpretation Comments Creatinine (test code = 2160-0) 1.12 0.72-1.25 [facility] CenterBUN/Creatinine Qpsse6470-21-80 08:05:00* Test Item Value Reference Range Interpretation Comments BUN/Creatinine Ratio (test code = 3097-3) 11 - [facility] CenterEstimat Glomerular Filtration Rate 2019-08-22 08:05:00* Test Item Value Reference Range Interpretation Comments Estimat Glomerular Filtration Rate (test code = 862855580) > 60 >60 Ranges were taken from the National Kidney Disease Education Program and the [facility] Foundation literature.Reference ranges:60 or greater: Wxeyly17-67 ( for 3 consecutive months): Chronic kidney disease 15 or less: Kidney failureSc[facility] Medical CenterGlucose Lotyg3239-88-44 08:05:00* Test Item Value Reference Range Interpretation Comments Glucose Level (test code = WMB8464) 80 74-118 [facility] CenterCalcium Vivnj6031-37-71 08:05:00* Test Item Value Reference Range Interpretation Comments Calcium Level (test code = 76016-0) 10.0 8.4-10.2 [facility] CenterTotal Ovycfvsyq3687-57-49 08:05:00* Test Item Value Reference Range Interpretation Comments Total Bilirubin (test code = 1975-2) 1.1 0.2-1.2 [facility] CenterAspartate Amino Transf (AST/SGOT) 2019-08-22 08:05:00* Test Item Value Reference Range Interpretation Comments Aspartate Amino Transf (AST/SGOT) (test code = Aspartate Amino Transf (AST/SGOT)) 25 5-34 [facility] CenterAlanine Aminotransferase (ALT/SGPT) 2019-08-22 08:05:00* Test Item Value Reference Range Interpretation Comments Alanine Aminotransferase (ALT/SGPT) (test code = 1742-6) 24 0-55 [facility] CenterTotal Spevbfd8351-00-62 08:05:00* Test Item Value Reference Range Interpretation Comments Total Protein (test code = 2885-2) 9.0 6.5-8.1 H [facility] CenterAlbumin2019-11-04 08:05:00* Test Item Value Reference Range Interpretation Comments Albumin (test code = 1751-7) 4.4 3.5-5.0 [facility] CenterGlobulin2019-11-04 08:05:00* Test Item Value Reference Range Interpretation Comments Globulin (test code = 35905-3) 4.6 2.3-3.5 H [facility] CenterAlbumin/Globulin Mrwzh4136-54-58 08:05:00 * Test Item Value Reference Range Interpretation Comments Albumin/Globulin Ratio (test code = 1759-0) 1.0 0.8-2.0 [facility] CenterAlkaline Sjdsxirhsjj6929-97-99 08:05:00* Test Item Value Reference Range Interpretation Comments Alkaline Phosphatase (test code = 6768-6) 49 40-150 [facility] CenterWhite Blood Mztnd0297-49-65 07:40:00* Test Item Value Reference Range Interpretation Comments White Blood Count (test code = 6690-2) 9.16 4.8-10.8 [facility] CenterRed Blood Qhnww5439-80-13 07:40:00* Test Item Value Reference Range Interpretation Comments Red Blood Count (test code = 789-8) 4.87 4.3-5.7 [facility] CenterHemoglobin2019-11-04 07:40:00* Test Item Value Reference Range Interpretation Comments Hemoglobin (test code = 62968-9) 16.2 14.0-18.0 [facility] CenterHematocrit2019-11-04 07:40:00* Test Item Value Reference Range Interpretation Comments Hematocrit (test code = 4544-3) 46.9 38.2-49.6 [facility] CenterMean Corpuscular Lkmbof4846-68-40 07:40:00* Test Item Value Reference Range Interpretation Comments Mean Corpuscular Volume (test code = 787-2) 96.3 81-99 [facility] CenterMean Corpuscular Gokqkxitot4188-49-06 07:40:00* Test Item Value Reference Range Interpretation Comments Mean Corpuscular Hemoglobin (test code = 785-6) 33.3 28-32 H [facility] CenterMean Corpuscular Hemoglobin Concent 2019-08-22 07:40:00* Test Item Value Reference Range Interpretation Comments Mean Corpuscular Hemoglobin Concent (test code = 786-4) 34.5 31-35 [facility] CenterRed Cell Distribution Gljau3310-29-14 07:40:00* Test Item Value Reference Range Interpretation Comments Red Cell Distribution Width (test code = 22634-7) 13.2 11.7 -14.4 [facility] CenterPlatelet Tppvd2632-46-92 07:40:00* Test Item Value Reference Range Interpretation Comments Platelet Count (test code = 777-3) 187 140-360 [facility] CenterNeutrophils (%) (Auto)2019-08-22 07:40:00 * Test Item Value Reference Range Interpretation Comments Neutrophils (%) (Auto) (test code = 77811-6) 50.2 38.7-80.0 [facility] CenterLymphocytes (%) (Auto)2019-08-22 07:40:00 * Test Item Value Reference Range Interpretation Comments Lymphocytes (%) (Auto) (test code = 736-9) 33.3 18.0-39.1 [facility] CenterMonocytes (%) (Auto)2019-08-22 07:40:00* Test Item Value Reference Range Interpretation Comments Monocytes (%) (Auto) (test code = 5905-5) 10.5 4.4-11.3 [facility] CenterEosinophils (%) (Auto)2019-08-22 07:40:00 * Test Item Value Reference Range Interpretation Comments Eosinophils (%) (Auto) (test code = 713-8) 5.2 0.0-6.0 [facility] CenterBasophils (%) (Auto)2019-08-22 07:40:00* Test Item Value Reference Range Interpretation Comments Basophils (%) (Auto) (test code = 706-2) 0.4 0.0-1.0 [facility] CenterIM GRANULOCYTES %2019-08-22 07:40:00* Test Item Value Reference Range Interpretation Comments IM GRANULOCYTES % (test code = IM GRANULOCYTES %) 0.4 0.0- 1.0 [facility] CenterNeutrophils # (Auto)2019-08-22 07:40:00* Test Item Value Reference Range Interpretation Comments Neutrophils # (Auto) (test code = 751-8) 4.6 2.1-6.9 [facility] CenterLymphocytes # (Auto)2019-08-22 07:40:00* Test Item Value Reference Range Interpretation Comments Lymphocytes # (Auto) (test code = 14230-9) 3.1 1.0-3.2 [facility] CenterMonocytes # (Auto)2019-08-22 07:40:00* Test Item Value Reference Range Interpretation Comments Monocytes # (Auto) (test code = 742-7) 1.0 0.2-0.8 H [facility] CenterEosinophils # (Auto)2019-08-22 07:40:00* Test Item Value Reference Range Interpretation Comments Eosinophils # (Auto) (test code = 711-2) 0.5 0.0-0.4 H [facility] CenterBasophils # (Auto)2019-08-22 07:40:00* Test Item Value Reference Range Interpretation Comments Basophils # (Auto) (test code = 704-7) 0.0 0.0-0.1 [facility] CenterAbsolute Immature Granulocyte (auto 2019-08-22 07:40:00* Test Item Value Reference Range Interpretation Comments Absolute Immature Granulocyte (auto (sha t code = Absolute Immature Granulocyte (auto) 0.04 0-0.1 [facility] CenterCT ABDOMEN/PELVIS T1585-61-93 17:13:00 [facility] [address] [place] [address] Patient Name: QUETA CORONADO MR #: [id number] : 1945 Age/Sex: 73/M Req #: [id number] Adm Physician: Ordered by: DANNY GALLEGO NP Report #: [id number] Location: ER Room/Bed: Procedure: [id number] CT/CT ABDOMEN/PELVIS W Exam Date: Exam Chris e: REPORT STATUS: Signed EXAMIN ATION: CT of the abdomen and pelvis with contrast. TECHNIQUE: Spiral CT images of the abdomen and pelvis were performed from the lung bases to the les ser trochanters after the intravenous administration of 100 cc of Isovue 370 a nd the oral administration of water. Coronal and sagittal reformatted images were obtained. COMPARISON: None. CLINICAL HISTORY:Vomiting, abdominal pain, epigastric, for 3 days DISCUSSION: ABDOMEN/PELVIS: LO WER THORAX:Subpleural reticulation, predominantly noted in the right middle lo be, likely reflecting mild fibrotic changes. No consolidation HEPATOBILIARY : No focal hepatic lesions. No intra or extrahepatic biliary ductal dilation. 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 PANCREAS: No focal masses or ductal dilatation. No peripancreatic inflammatory changes, fat stranding, free fluid or fluid collections. ADRENALS: No ad renal nodules. KIDNEYS/URETERS: No hydronephrosis, stones, or solid mass le sions. PELVIC ORGANS/BLADDER: Bladder and prostate are unremarkable. P ERITONEUM/RETROPERITONEUM: No free air or fluid. LYMPH NODES: No intra-abdo luis fernando, retroperitoneal, pelvic or inguinal lymphadenopathy. VESSELS: The celiac trunk,superior and inferior mesenteric and bilateral renal arteries ar e patent The portal, superior mesenteric and splenic veins are patent. G I TRACT: Multiple metallic clips surrounding the stomach. No bowel dilation or evidence of obstruction. No wall thickening. BONES AND SOFT TISSUE: No agg ressive lytic lesions. Degenerative disc changes in the lumbosacral spine. No soft tissue abnormalities. IMPRESSION: 1. No acute abdominal or pelvic abnormalities. No bowel dilation or evidence of obstruction. 2. Postoperat billy changes in the stomach. Status post cholecystectomy and splenectomy. Signed by: Dr. Pritesh Fontanez M.D. on 11/04/2018 5:19 PM Dictated By: PRITESH FONTANEZ MD 18 Transcribed By: DEANN on 11/04/181718 COPY TO: DANNY GALLEGO HYDROELECTRIC STATION OPERATOR CHEST SINGLE (PORTABLE)2018-11-04 15:55:00 [place] [address] Patient Name: QUETA CORONADO MR #: [id number] : 1945 Age/Sex: 73/M Req #: [id number] Adm Physician: Ordered by: DANNY GALLEGO HYDROELECTRIC STATION OPERATOR Report #: [id number] Location: ER Room/Bed: Procedure: [id number] DX/CHEST SINGLE (PORTABLE) Exam Date: 11/04/18 Exam Time: 1450 REPORT STATUS: Signed EXAMINATION: CHEST SINGLE (PORTABLE) INDICATION: Nausea, vom iting, abdominal pain. COMPARISON: None FINDINGS: TUBES and L MORALES: None. LUNGS: Moderate lung volumes. Patchy opacities are present at the right lung base. There are is biapical pleural-parenchymal opacity with br onchial wall thickening and bronchiectasis in the upper lobes. There is a foca l somewhat nodular opacity projecting over the right upper lung. PLEURA: No pleural effusion or pneumothorax. HEART AND MEDIASTINUM: The cardiome diastinal silhouette is unremarkable. BONES AND SOFT TISSUES: No acute osseous lesion. Soft tissues are unremarkable. UPPER ABDOMEN: No free a ir under the diaphragm. Surgical clips project over the upper abdomen. I MPRESSION: Focal opacity in the right upper lung could represent consolidatio n from pneumonia or pulmonary nodule. Follow-up chest radiograph in 6-[address] chest CT is suggested. Patchy opacities at the right lung base, whi ch could reflect atelectasis or pneumonia in the appropriate clinical context. Upper lobe biapical pleural parenchymal opacity with bronchial wall thick ening and bronchiectasis, likely representing sequela of prior granulomatous d isease. Signed by: Dr. Andrea Chandra MD on 11/04/2018 4:01 PM Dictated By: ANDREA CHANDRA MD 1601 Tra nscribed By: DEANN on 11/04/18 1601 COPY TO: DANNY GALLEGO HYDROELECTRIC STATION OPERATOR B-Type Natriuretic Utupntj3282-50-95 15:52:00* Test Item Value Reference Range Interpretation Comments B-Type Natriuretic Peptide (test code = 54315-4) < 10.0 0-100 [facility] CenterB-Type Natriuretic Emlwiwp1146-12-32 15:52:00* Test Item Value Reference Range Interpretation Comments B-Type Natriuretic Peptide (test code = 46891-3) < 10.0 0-100 [facility] CenterCreatine Kinase ZA8136-88-01 15:43:00* Test Item Value Reference Range Interpretation Comments Creatine Kinase MB (test code = 03066-7) 0.40 0-5.0 [facility] CenterTroponin C0250-74-80 15:43:00* Test Item Value Reference Range Interpretation Comments Troponin I (test code = MCA0741) 0.006 0-0.300 [facility] [facility] CenterCreatine Kinase [id number] 15:43:00* Test Item Value Reference Range Interpretation Comments Creatine Kinase MB (test code = 11891-0) 0.40 0-5.0 [facility] CenterTroponin [id number] 15:43:00* Test Item Value Reference Range Interpretation Comments Troponin I (test code = YQM2060) 0.006 0-0.300 [facility] CenterInfluenza Virus Types A,B Antigen 2018-11-04 15:42:00* Test Item Value Reference Range Interpretation Comments Influenza Virus Types A,B Antigen (test code = 21655-2) NEGATIVE NEGATIVE [facility] CenterInfluenza Virus Types A,B Antigen 2018-11-04 15:42:00* Test Item Value Reference Range Interpretation Comments Influenza Virus Types A,B Antigen (test code = 71379-0) NEGATIVE NEGATIVE [facility] CenterUrine [id number] 15:31:00* Test Item Value Reference Range Interpretation Comments Urine WBC (test code = 5821-4) NONE 0-5 [facility] CenterUrine [id number] 15:31:00* Test Item Value Reference Range Interpretation Comments Urine RBC (test code = 43180-2) NONE 0-5 [facility] CenterUrine Iqevkrli8117-00-81 15:31:00* Test Item Value Reference Range Interpretation Comments Urine Bacteria (test code = 66899-0) MODERATE NONE H [facility] CenterUrine Epithelial [id number] 15:31:00 * Test Item Value Reference Range Interpretation Comments Urine Epithelial Cells (test code = 90403-6) NONE NONE [facility] CenterUrine Nrypg3881-42-04 15:31:00* Test Item Value Reference Range Interpretation Comments Urine Mucus (test code = 8247-9) MODERATE RARE H [facility] Centerodium Nhhph6022-04-50 15:30:00* Test Item Value Reference Range Interpretation Comments Sodium Level (test code = 2951-2) 132 136-145 L [facility] CenterPotassium Sxeey9129-07-96 15:30:00* Test Item Value Reference Range Interpretation Comments Potassium Level (test code = 2823-3) 3.9 3.5-5.1 [facility] CenterChloride Dijlk5117-29-94 15:30:00* Test Item Value Reference Range Interpretation Comments Chloride Level (test code = 2075-0) 97 98-107 L [facility] CenterCarbon Dioxide [id number] 15:30:00* Test Item Value Reference Range Interpretation Comments Carbon Dioxide Level (test code = 2028-9) 25 22-29 [facility] CenterAnion [id number] 15:30:00* Test Item Value Reference Range Interpretation Comments Anion Gap (test code = 51009-3) 13.9 8-16 [facility] CenterBlood Urea Tqrprxpk2023-49-23 15:30:00* Test Item Value Reference Range Interpretation Comments Blood Urea Nitrogen (test code = 3094-0) 21 7-26 [facility] CenterCreatinine2019-01-17 15:30:00* Test Item Value Reference Range Interpretation Comments Creatinine (test code = 2160-0) 1.21 0.72-1.25 [facility] CenterBUN/Creatinine Dtnxl3371-54-56 15:30:00* Test Item Value Reference Range Interpretation Comments BUN/Creatinine Ratio (test code = 3097-3) 17 6-25 [facility] CenterEstimat Glomerular Filtration Rate 2018-11-04 15:30:00* Test Item Value Reference Range Interpretation Comments Estimat Glomerular Filtration Rate (test code = 955908128) 59 >60 L Ranges were taken from the National Kidney Disease Education Program and the [facility] literature.Reference ranges:60 or greater: Pvlkes77-48 ( for 3 consecutive months): Chronic kidney disease 15 or less: Kidney failureScenic Mountain Medical CenterGlucose Xdtxq5622-57-68 15:30:00* Test Item Value Reference Range Interpretation Comments Glucose Level (test code = CRD6545) 82 74-118 [facility] CenterCalcium Pztex4632-89-74 15:30:00* Test Item Value Reference Range Interpretation Comments Calcium Level (test code = 33713-8) 9.2 8.4-10.2 [facility] CenterTotal Hynrlorvh1067-05-54 15:30:00* Test Item Value Reference Range Interpretation Comments Total Bilirubin (test code = 1975-2) 0.6 0.2-1.2 [facility] CenterAspartate Amino Transf (AST/SGOT) 2018-11-04 15:30:00* Test Item Value Reference Range Interpretation Comments Aspartate Amino Transf (AST/SGOT) (test code = Aspartate Amino Transf (AST/SGOT)) 45 5-34 H [facility] CenterAlanine Aminotransferase (ALT/SGPT) 2018-11-04 15:30:00* Test Item Value Reference Range Interpretation Comments Alanine Aminotransferase (ALT/SGPT) (test code = 1742-6) 73 0-55 H [facility] Jquiwws5656-06-41 15:30:00* Test Item Value Reference Range Interpretation Comments Total Protein (test code = 2885-2) 8.3 6.5-8.1 H [facility] CenterAlbumin2019-01-17 15:30:00* Test Item Value Reference Range Interpretation Comments Albumin (test code = 1751-7) 4.0 3.5-5.0 [facility] CenterGlobulin2019-01-17 15:30:00* Test Item Value Reference Range Interpretation Comments Globulin (test code = 88831-8) 4.3 2.3-3.5 H [facility] CenterAlbumin/Globulin Ndcur2816-97-48 15:30:00 * Test Item Value Reference Range Interpretation Comments Albumin/Globulin Ratio (test code = 1759-0) 0.9 0.8-2.0 [facility] CenterAlkaline Vlthuyhzbtr8558-14-29 15:30:00* Test Item Value Reference Range Interpretation Comments Alkaline Phosphatase (test code = 6768-6) 54 40-150 [facility] CenterCreatine Riwfaj8506-01-99 15:30:00* Test Item Value Reference Range Interpretation Comments Creatine Kinase (test code = 2157-6) 67 30-200 [facility] CenterLipase2019-01-17 15:30:00* Test Item Value Reference Range Interpretation Comments Lipase (test code = 3040-3) 78 [facility] CenterCreatine Ojbhmn2963-97-38 15:30:00* Test Item Value Reference Range Interpretation Comments Creatine Kinase (test code = 2157-6) 67 30-200 [facility] CenterLipase2019-01-17 15:30:00* Test Item Value Reference Range Interpretation Comments Lipase (test code = 3040-3) 8 [facility] CenterProthrombin Vewk2884-67-01 15:23:00* Test Item Value Reference Range Interpretation Comments Prothrombin Time (test code = 5902-2) 14.3 11.9-14.5 [facility] CenterProthromb Time International Ratio 2018-11-04 15:23:00* Test Item Value Reference Range Interpretation Comments Prothromb Time International Ratio (test code = 6301-6) 1.02 Oral Anticoagulant Therapy INR Values:1. Low Intensity Therapy 1.5 - 2.02 . Moderate Intensity Therapy 2.0 - 3.03. High Intensity Therapy(1) 2.5 - 3. 54. High Intensity Therapy(2) 3.0 - 4.05. Panic Value INR > 5.0 [facility] CenterActivated Partial Thromboplast Time 2018-11-04 15:23:00* Test Item Value Reference Range Interpretation Comments Activated Partial Thromboplast Time (test code = 64418-5) 29.2 23.8-35.5 [facility] CenterProthrombin [id number] 15:23:00* Test Item Value Reference Range Interpretation Comments Prothrombin Time (test code = 5902-2) 14.3 11.9-14.5 [facility] CenterProthromb Time International Ratio 2018-11-04 15:23:00* Test Item Value Reference Range Interpretation Comments Prothromb Time International Ratio (test code = 6301-6) 1.02 Oral Anticoagulant Therapy INR Values:1. Low Intensity Therapy 1.5 - 2.02 . Moderate Intensity Therapy 2.0 - 3.03. High Intensity Therapy(1) 2.5 - 3. 54. High Intensity Therapy(2) 3.0 - 4.05. Panic Value INR > 5.0 [facility] CenterActivated Partial Thromboplast Time 2018-11-04 15:23:00* Test Item Value Reference Range Interpretation Comments Activated Partial Thromboplast Time (test code = 01877-3) 29.2 23.8-35.5 [facility] CenterUrine Bklrt7753-58-96 15:21:00* Test Item Value Reference Range Interpretation Comments Urine Color (test code = 5778-6) YELLOW YELLOW [facility] CenterUrine Byhmgxi1923-52-99 15:21:00* Test Item Value Reference Range Interpretation Comments Urine Clarity (test code = 44858-3) CLEAR CLEAR [facility] CenterUrine Specific Sjbzbgv3954-41-76 15:21:00 * Test Item Value Reference Range Interpretation Comments Urine Specific [place] (test code = 5811-5) 1.015 1.010-1.02 5 [facility] CenterUrine [id number] 15:21:00* Test Item Value Reference Range Interpretation Comments Urine pH (test code = 10752-5) 6 5-7 [facility] CenterUrine Leukocyte Exxafplv0272-87-75 15:21:00* Test Item Value Reference Range Interpretation Comments Urine Leukocyte Esterase (test code = 5799-2) NEGATIVE NEGATIVE [facility] CenterUrine Knzargb9903-59-97 15:21:00* Test Item Value Reference Range Interpretation Comments Urine Nitrite (test code = 43821-8) NEGATIVE NEGATIVE [facility] CenterUrine Sxxucmt2661-98-89 15:21:00* Test Item Value Reference Range Interpretation Comments Urine Protein (test code = 5804-0) NEGATIVE NEGATIVE [facility] CenterUrine Glucose (UA)2018-11-04 15:21:00* Test Item Value Reference Range Interpretation Comments Urine Glucose (UA) (test code = 2349-9) NEGATIVE NEGATIVE [facility] CenterUrine Rvyjjex2022-07-04 15:21:00* Test Item Value Reference Range Interpretation Comments Urine Ketones (test code = 89926-6) TRACE NEGATIVE H [facility] CenterUrine Voojdjstgbzg0380-47-86 15:21:00* Test Item Value Reference Range Interpretation Comments Urine Urobilinogen (test code = 91882-9) 0.2 0.2-1 [facility] CenterUrine Fzdldumue7876-93-13 15:21:00* Test Item Value Reference Range Interpretation Comments Urine Bilirubin (test code = 1978-6) NEGATIVE NEGATIVE [facility] CenterUrine Rxmox2739-33-89 15:21:00* Test Item Value Reference Range Interpretation Comments Urine Blood (test code = 40762-3) NEGATIVE NEGATIVE [facility] CenterWhite Blood Ywfem4843-46-09 15:20:00* Test Item Value Reference Range Interpretation Comments White Blood Count (test code = 6690-2) 7.09 4.8-10.8 [facility] CenterRed Blood Jscui1997-40-21 15:20:00* Test Item Value Reference Range Interpretation Comments Red Blood Count (test code = 789-8) 4.73 4.3-5.7 [facility] CenterHemoglobin2019-01-17 15:20:00* Test Item Value Reference Range Interpretation Comments Hemoglobin (test code = 12714-8) 15.8 14.0-18.0 [facility] CenterHematocrit2019-01-17 15:20:00* Test Item Value Reference Range Interpretation Comments Hematocrit (test code = 4544-3) 46.4 38.2-49.6 [facility] CenterMean Corpuscular Ibmqmc0062-11-99 15:20:00* Test Item Value Reference Range Interpretation Comments Mean Corpuscular Volume (test code = 787-2) 98.1 81-99 [facility] CenterMean Corpuscular Lutuzszeel9886-28-08 15:20:00* Test Item Value Reference Range Interpretation Comments Mean Corpuscular Hemoglobin (test code = 785-6) 33.4 28-32 H [facility] CenterMean Corpuscular Hemoglobin Concent 2018-11-04 15:20:00* Test Item Value Reference Range Interpretation Comments Mean Corpuscular Hemoglobin Concent (test code = 786-4) 34.1 31-35 [facility] CenterRed Cell Distribution Nunqs8025-69-08 15:20:00* Test Item Value Reference Range Interpretation Comments Red Cell Distribution Width (test code = 00256-3) 13.6 11.7 -14.4 [facility] CenterPlatelet Emrlu4261-74-21 15:20:00* Test Item Value Reference Range Interpretation Comments Platelet Count (test code = 777-3) 158 140-360 [facility] CenterNeutrophils (%) (Auto)2018-11-04 15:20:00 * Test Item Value Reference Range Interpretation Comments Neutrophils (%) (Auto) (test code = 94968-7) 52.2 38.7-80.0 [facility] CenterLymphocytes (%) (Auto)2018-11-04 15:20:00 * Test Item Value Reference Range Interpretation Comments Lymphocytes (%) (Auto) (test code = 736-9) 29.9 18.0-39.1 [facility] CenterMonocytes (%) (Auto)2018-11-04 15:20:00* Test Item Value Reference Range Interpretation Comments Monocytes (%) (Auto) (test code = 5905-5) 12.6 4.4-11.3 H [facility] CenterEosinophils (%) (Auto)2018-11-04 15:20:00 * Test Item Value Reference Range Interpretation Comments Eosinophils (%) (Auto) (test code = 713-8) 4.5 0.0-6.0 [facility] CenterBasophils (%) (Auto)2018-11-04 15:20:00* Test Item Value Reference Range Interpretation Comments Basophils (%) (Auto) (test code = 706-2) 0.4 0.0-1.0 [facility] CenterIM GRANULOCYTES %2018-11-04 15:20:00* Test Item Value Reference Range Interpretation Comments IM GRANULOCYTES % (test code = IM GRANULOCYTES %) 0.4 0.0- 1.0 [facility] CenterNeutrophils # (Auto)2018-11-04 15:20:00* Test Item Value Reference Range Interpretation Comments Neutrophils # (Auto) (test code = 751-8) 3.7 2.1-6.9 [facility] CenterLymphocytes # (Auto)2018-11-04 15:20:00* Test Item Value Reference Range Interpretation Comments Lymphocytes # (Auto) (test code = 57013-9) 2.1 1.0-3.2 [facility] CenterMonocytes # (Auto)2018-11-04 15:20:00* Test Item Value Reference Range Interpretation Comments Monocytes # (Auto) (test code = 742-7) 0.9 0.2-0.8 H [facility] CenterEosinophils # (Auto)2018-11-04 15:20:00* Test Item Value Reference Range Interpretation Comments Eosinophils # (Auto) (test code = 711-2) 0.3 0.0-0.4 [facility] CenterBasophils # (Auto)2018-11-04 15:20:00* Test Item Value Reference Range Interpretation Comments Basophils # (Auto) (test code = 704-7) 0.0 0.0-0.1 [facility] CenterAbsolute Immature Granulocyte (auto 2018-11-04 15:20:00* Test Item Value Reference Range Interpretation Comments Absolute Immature Granulocyte (auto (sha t code = Absolute Immature Granulocyte (auto) 0.03 0-0.1 [facility]
[2020-05-22] MEDS ORDERED: TRAMADOL HCL 50 MG TAB PO ONE (12:30)
--- NOTE | 2020-05-22 12:58 | Emergency Department Note ---
History of Present Illnes History of Present Illness Chief Complaint: Skin Rash or Abscess History of Present Illness This is a 75 year old male c/o shingles like lesions to left side of trunk, neck, ear, face and thinks it may be in his left eye c/o pain to lesion sites 07/28. Historian: Patient Arrival Mode: Car Steam Shovel Oiler Required: No Onset (how long ago): day(s) (3) Location: L shoulder, back, face Past Medical/Family History Physician Review I have reviewed the patient's past medical and family history. Any updates have been documented here. Past Medical History Recent Fever: No Clinical Suspicion of Infectio: Yes New/Unexplained Change in Ment: No Past Medical History: Hypothyroidism, GERD Other Medical History: ULCERS Past Surgical History: Cholecysctectomy Other Surgery: SPLENECTOMY, ULCERS Social History Smoking Cessation: Never Smoker Counseling Performed: No Alcohol Use: None Any Illegal Drug Use: No Physically hurt or threatened: No Other Last Tetanus: UNKNOWN Any Pre-Existing Lines (PICC,: No Physical Exam Related Data Allergies: Coded Allergies: No Known Allergies (Unverified , 09/11/19) Triage Vital Signs Vital Signs Date Time Temp Pulse Resp B/P (MAP) Pulse Ox O2 Delivery O2 Flow Rate FiO2 05/22/20 11:38 99.5 85 18 124/77 99 Room Air Physical Exam CONSTITUTIONAL Constitutional: Present well-developed, Present well-nourished HENT HENT: Present normocephalic, Present atraumatic, Present oropharynx clear/moist, Present nose normal HENT L/R: Present left ext ear normal, Present right ext ear normal EYES Eyes: Reports PERRL, Reports conjunctivae normal, Reports other (Fluorecin stain shows no uptake) NECK Neck: Present ROM normal PULMONARY Pulmonary: Present effort normal, Present breath sounds normal CARDIOVASCULAR Cardiovascular: Present regular rhythm, Present heart sounds normal, Present capillary refill normal, Present normal rate GASTROINTESTINAL Abdominal: Present soft, Present nontender, Present bowel sounds normal GENITOURINARY Genitourinary: Present exam deferred SKIN Skin: Present warm, Present dry, Present other (L shoulder vesicular rash ext ending to LUE and L face) MUSCULOSKELETAL Musculoskeletal: Present ROM normal NEUROLOGICAL Neurological: Present alert, Present oriented x 3, Present no gross motor or sensory deficits PSYCHOLOGICAL Psychological: Present mood/affect normal, Present judgement normal Assessment & Plan Medical Decision Making MDM 75-year-old male presenting for a rash the left side of his body. Exam shows an overall well-appearing patient in no acute distress, vital signs stable, within acceptable limits. The rash includes left shoulder, arm, left face and does not cross midline. Rash is vesicular in nature with an erythematous border/base. Symptoms onset 3 days ago. Pleurisy my stain shows no uptake. Exam and history is most significant for shingles as patient has had chickenpox and no shows vaccination. Will prescribe acyclovir and gabapentin. Doubt emergent process at this time. I discussed results patient as well as expected disease time course and management. They will follow up with their primary care provider or return to the emergency department for new or worsening symptoms. Patient's appropriate for discharge. Part of this note was dictated with Reynold and is subject to recognition errors. Reassessment Reassessment time: 13:05 Reassessment Well appearing, NAD Assessment & Plan Final Impression: (1) Shingles Depart Disposition: HOME, SELF-CARE Last Vital Signs Date Time Temp Pulse Resp B/P (MAP) Pulse Ox O2 Delivery O2 Flow Rate FiO2 05/22/20 12:25 99.5 76 17 136/83 100 Room Air Home Meds Active Scripts Ondansetron Hcl* (ZOFRAN*) 4 Mg Tablet, 4 MG SL Q6H PRN for NAUSEA, #14 MG 0 Refills Prov:ELIAZBETH HUBBARD, DO 08/22/19 Medications in the ED Fluorometholone 1 DROP DAILY OP ; Start 05/23/20 at 09:00; Stop 06/22/20 at 08:59; Status Cancel Tramadol HCl 50 mg ONCE ONCE PO Last administered on 05/22/20at 12:47; Admin Dose 50 MG; Start 05/22/20 at 12:30; Stop 05/22/20 at 12:31; Status DC Fluorescein Sodium 1 mg ONCE ONCE OP ; Start 05/22/20 at 13:00; Stop 05/22/20 at 13:01 ROSSANA STERN MD May 22, 2020 12:58
[2020-05-22] MEDS ORDERED: FLUORESCEIN SOD(OPTH) 1 MG STRP OP ONE (13:00)
[2020-05-22] MEDS ORDERED: GABAPENTIN100 MG PO (13:09)
[2020-05-22] MEDS ORDERED: ACYCLOVIR800 MG PO (13:09)
[2020-05-23] MEDS ORDERED: FLUOROMETHOLONE 0.1% OPTHMALMIC SUSP 5 ML BTL OP SCH (09:00)
== END 2020-05-22 14:05 | disposition home or self-care (01) ==
LOC: ER 11:40
DX: B02.9 Zoster without complications (principal); E03.9 Hypothyroidism, unspecified; K21.9 Gastro-esophageal reflux disease without esophagitis
CPT/HCPCS: 99284

== ENCOUNTER 2020-11-26 18:37 | Emergency (ER) | payer MEDICARE, OTHER ==
[~2020-11-26] VITALS: Ht 162.6 cm; Wt 67.1 kg
[~2020-11-26 18:37] MED LIST changes: +ACYCLOVIR800 MG PO; +GABAPENTIN100 MG PO
[2020-11-26] MEDS ORDERED: ONDANSETRON HCL INJ 2MG/ML 2ML 2 MG/ML VIAL IV STA (18:53)
[2020-11-26] MEDS ORDERED: PANTOPRAZOLE 40 MG 10ML VIAL IV STA (18:53)
[2020-11-26] MEDS ORDERED: ONDANSETRON HCL INJ 2MG/ML 2ML 2 MG/ML VIAL ONE (19:05)
[2020-11-26] MEDS ORDERED: PANTOPRAZOLE 40 MG 10ML VIAL ONE (19:05)
[2020-11-26 19:09] LABS: BASOPHILS # (AUTO) 0.1 (0.0-0.1); BASOPHILS % 0.7 % (0.0-1.0); EOSINOPHILS # (AUTO) 0.4 (0.0-0.4); EOSINOPHILS % 4.5 % (0.0-6.0); HEMATOCRIT 44.2 % (38.2-49.6); HEMOGLOBIN 14.9 g/dL (14.0-18.0); LYMPHOCYTES # (AUTO) 3.7 (1.0-3.2); LYMPHOCYTES % 40.5 % (18.0-39.1); MEAN CORPUSCULAR HEMOGLOBIN 32.7 pg (28-32); MEAN CORPUSCULAR HGB CONC 33.7 g/dL (31-35); MEAN CORPUSCULAR VOLUME 96.9 fL (81-99); MONOCYTES # (AUTO) 0.8 (0.2-0.8); MONOCYTES % 8.9 % (4.4-11.3); NEUTROPHILS # (AUTO) 4.1 (2.1-6.9); NEUTROPHILS % 45.1 % (38.7-80.0); PLATELET COUNT 187 x10e3/uL (140-360); RED BLOOD COUNT 4.56 x10e6/uL (4.3-5.7); RED CELL DISTRIBUTION WIDTH 13.5 % (11.7-14.4)
[2020-11-26 19:21] LABS: CLARITY,URINE CLEAR (CLEAR); COLOR,URINE YELLOW (YELLOW); KETONES,URINE NEGATIVE (NEGATIVE); LEUKOCYTE ESTERASE ,URINE NEGATIVE (NEGATIVE); NITRITE,URINE NEGATIVE (NEGATIVE); PROTEIN,URINE DIPSTICK NEGATIVE (NEGATIVE); URINE UROBILINOGEN 0.2 mg/dL (0.2 - 1)
[2020-11-26 19:28] LABS: ALANINE AMINOTRANSFERASE 24 IU/L (0-55); ALBUMIN 4.1 g/dL (3.5-5.0); ALBUMIN/GLOBULIN RATIO 0.9 (0.8-2.0); ALKALINE PHOSPHATASE 43 IU/L (40-150); ANION GAP 14.1 mmol/L (8-16); BLOOD UREA NITROGEN 15 mg/dL (7-26); BUN/CREATININE RATIO 14 (6-25); CALCIUM 8.9 mg/dL (8.4-10.2); CARBON DIOXIDE 24 mmol/L (22-29); CHLORIDE 104 mmol/L (98-107); CREATININE, SERUM 1.08 mg/dL (0.72-1.25); EST GLOMERULAR FILTRATION RATE > 60 ML/MIN (60-); GLUCOSE 87 mg/dL (74-118); POTASSIUM 4.1 mmol/L (3.5-5.1); SODIUM 138 mmol/L (136-145)
[2020-11-26 19:34] LABS: RBC,URINE 0-5 /HPF (0-5); WBC,URINE (MAN) 0-5 /HPF (0-5)
[2020-11-26 19:40] LABS: AMYLASE 66 U/L (25-125); LIPASE 17 U/L (8-78)
[2020-11-26] MEDS ORDERED: SODIUM CHLORIDE 0.9% 50ML 50 ML ONE (19:42)
[2020-11-26] MEDS ORDERED: IOPAMIDOL 370 MG/ML 200 ML INFUS..BTL INJ ONE (19:42)
== END 2020-11-26 23:00 | disposition home or self-care (01) ==
LOC: ER 18:55
DX: R10.33 Periumbilical pain (principal); K59.00 Constipation, unspecified; R11.2 Nausea with vomiting, unspecified; K57.10 Diverticulosis of small intestine without perforation or abscess without bleeding; K76.0 Fatty (change of) liver, not elsewhere classified; N40.0 Benign prostatic hyperplasia without lower urinary tract symptoms; K21.9 Gastro-esophageal reflux disease without esophagitis; E03.9 Hypothyroidism, unspecified
CPT/HCPCS: 36415; 74177; 80053; 81001; 82150; 83690; 85025; 99283; C9113; J2405; Q9967